=== PATIENT | female | born 1955 | race American Indian/Alaskan Native ===

== ENCOUNTER 2018-05-07 10:53 | Outpatient (CLI) | payer BC | END 2018-05-07 10:54 | disposition home or self-care (01) | LOC: RAD 10:53 ==

== ENCOUNTER 2018-05-09 08:37 | Outpatient (CLI) | payer BC | END 2018-05-09 08:38 | disposition home or self-care (01) | LOC: RAD 08:37 ==

== ENCOUNTER 2018-05-09 17:22 | Emergency (ER) | payer BC ==
[2018-05-09 17:35] VITALS: RESP 18; TEMP 98.1; BMI 30.1
--- NOTE | 2018-05-09 17:44 | ED PDOC ---
Arrival/HPI - General Chief Complaint: Chest Pain Time Seen by Provider: 05/09/18 17:28 Historian: Patient - History of Present Illness Narrative History of Present Illness (Text): 05/09/18 17:42 A 62 year old female, whose past medical history includes diabetes mellitus, hernia, hypertension, and sciatica presents, presents to the emergency department complaining of non-radiating chest pain that started around 1 hour ago. Patient notes she had a mammogram earlier today and states her primary care doctor noticed slight thickening at the bottom of her heart. Patient denies any shortness of breath, nausea, or any other complaints. PMD: Iris Duran Time/Duration: Other (earlier) Symptom Onset: Gradual Symptom Course: Unchanged Activities at Onset: Light Context: Other (doctor's office) Past Medical History - Provider Review Nursing Documentation Reviewed: Yes - Infectious Disease Hx of Infectious Diseases: None - Cardiac Hx Cardiac Disorders: Yes Hx Hypertension: Yes - Pulmonary Hx Asthma: Yes - Neurological Hx Neurological Disorder: No - HEENT Hx HEENT Disorder: No - Renal Hx Renal Disorder: No - Endocrine/Metabolic Hx Endocrine Disorders: Yes (boarder line diabetis) Hx Diabetes Mellitus Type 2: Yes - Hematological/Oncological Hx Blood Transfusions: No (PT. IS A JEHOVAH WITNESS) Hx Blood Transfusion Reaction: No - Integumentary Hx Dermatological Disorder: No - Musculoskeletal/Rheumatological Hx Musculoskeletal Disorders: Yes Hx Falls: Yes (dizzines) - Gastrointestinal Hx Gastrointestinal Disorders: No - Genitourinary/Gynecological Hx Genitourinary Disorders: No - Psychiatric Hx Psychophysiologic Disorder: No Hx Substance Use: No - Surgical History Hx Section: Yes (1985) - Anesthesia Hx Anesthesia: Yes Hx Anesthesia Reactions: No Hx Malignant Hyperthermia: No - Suicidal Assessment Feels Threatened In Home Enviroment: No Family/Social History - Physician Review Nursing Documentation Reviewed: Yes Family/Social History: No Known Family HX Smoking Status: Never Smoked Hx Alcohol Use: No Hx Substance Use: No Hx Substance Use Treatment: No Allergies/Home Meds Allergies/Adverse Reactions: Allergies No Known Allergies Allergy (Verified 04/25/14 11:08) Home Medications: Home Meds Medication Instructions Recorded Confirmed Metformin Hydrochloride [Metformin] 1,000 mg PO BID 09/03/11 03/10/15 Albuterol 0.083% [Albuterol 3 ml IH QID PRN 03/10/15 03/10/15 Sulfate 3 Ml] Review of Systems - Physician Review All systems were reviewed & negative as marked: Yes - Review of Systems Respiratory: absent: SOB Cardiovascular: Chest Pain Gastrointestinal: absent: Nausea Physical Exam - Physical Exam Narrative Physical Exam (Text): 05/09/18 17:44 Gen: VS reviewed, alert, well developed, well nourished, nontoxic, mild distress. ENT: normal pharynx. Eye: EOMI, PERRL. Neck: no JVD, supple, no adenopathy. CV: regular rate, regular rhythm, no rubs, no murmur, no gallops, S1, S2, pulses equal and strong. Pulm: no distress, clear to auscultation, no wheeze, no rhonchi, breath sounds equal, no rales. Abd: soft, nontender, no guarding, no rebound, no rigidity, normal bowel sounds. Ext: no edema. Skin: good color, no rash, no cyanosis. Psych: responds appropriately to questions, normal affect. Neuro: oriented x 3, CN2-12 intact grossly, motor intact, sensation intact. Vital Signs Reviewed: Yes Vital Signs Temp Pulse Resp BP Pulse Ox 05/09/18 17:30 98.1 F 100 H 18 173/112 H 99 Temperature: Afebrile Blood Pressure: Hypertensive Pulse: Tachycardic Respiratory Rate: Normal Appearance: Positive for: Well-Appearing, Non-Toxic Mental Status: Positive for: Alert and Oriented X 3 Medical Decision Making ED Course and Treatment: 05/09/18 17:44 Impression: 62 year old female presenting to the emergency room complaining of chest pain. Plan: -- EKG -- Labs -- CBC -- COAGs -- Chest X-ray -- Reassess and disposition Prior Visits: Notes and results from previous visits were reviewed. Progress Notes: 05/09/18 19:05 low risk chest pain, heart score = 3, no significant clinical suspicion for PE or aortic dissection. patient is chest pain free at this time, will get serial troponin and if negative patient can be discharged home - RAD Interpretation Narrative RAD Interpretations (Text): 05/09/18 19:21 Procedure: Chest X-ray Dictator: Henry Shah MD Impression: No active disease. No significant interval change compared to the prior examination(s). Radiology Orders: 05/09/18 17:41 CHEST PORTABLE [RAD] [employer] Consultant: Radiologist - EKG Interpretation EKG Interpretation (Text): 05/09/18 18:44 17:33: nsr at 100 bpm, nml qrs, nml axis, no acute sttw abn Interpreted by ED Physician: Yes - Scribe Statement The provider has reviewed the documentation as recorded by the Treasureibe Valeria Gutierrez All medical record entries made by the Scribe were at my direction and personally dictated by me. I have reviewed the chart and agree that the record accurately reflects my personal performance of the history, physical exam, medical decision making, and the department course for this patient. I have also personally directed, reviewed, and agree with the discharge instructions and disposition. Disposition/Present on Arrival - Present on Arrival Any Indicators Present on Arrival: No History of DVT/PE: No History of Uncontrolled Diabetes: No Urinary Catheter: No History of Decub. Ulcer: No History Surgical Site Infection Following: None - Disposition Have Diagnosis and Disposition been Completed?: Yes Diagnosis: Chest wall pain, Hypertension Disposition: HOME/ ROUTINE Disposition Time: 21:05 Patient Plan: Discharge Patient Problems: Current Active Problems Problem Status Onset Chest wall pain Acute Diabetes mellitus Acute Hypertension Acute Condition: STABLE Discharge Instructions (ExitCare): Chest Pain (ED) Additional Instructions: return for any new or worsening symptoms. follow up with your primary care doctor as soon as possible. discuss with your doctor further means to control your blood pressure. Referrals: Iris Domingo MD [Primary Care Provider] - Follow up with primary Forms: [employer] (Swedish)
[2018-05-09 18:31] LABS: BASO # 0.01 K/mm3 (0.0-2.0); BASO % 0.2 % (0.0-3.0); EOS # 0.1 (0.0-0.7); EOS % 1.8 % (1.5-5.0); HEMOGLOBIN 12.5 g/dL (12.0-16.0); LYMPH # 2.3 (1.2-3.4); LYMPH % 45.9 % (22.0-35.0); MEAN CELL VOLUME 86.3 fl (80.0-105.0); MEAN CORPUSCULAR HEMOGLOBIN 29.5 pg (25.0-35.0); MEAN CORPUSCULAR HGB CONC 34.2 g/dl (31.0-37.0); MEAN PLATELET VOLUME 10.6 fl (7.0-11.0); MONO # 0.3 (0.1-0.6); MONO % 6.7 % (1.0-6.0); RBC 4.24 10^6/uL (3.5-6.1); RED CELL DISTRIBUTION WIDTH 12.5 % (11.5-14.5); WHITE BLOOD COUNT 5.1 10^3/uL (4.5-11.0)
[2018-05-09 18:35] LABS: INR 1.08; PARTIAL THROMBOPLASTIN TIME 30.7 Seconds (26.9-38.3)
[2018-05-09 18:37] LABS: ALBUMIN 4.2 g/dL (3.0-4.8); ALT/SGPT 10 U/L (7-56); AST/SGOT 20 U/L (14-36); BLOOD UREA NITROGEN 18 mg/dL (7-21); CALCIUM 9.7 mg/dL (8.4-10.5); GFR NON-AFRICAN AMERICAN > 60; HDL CHOLESTEROL 40 mg/dL (29-60)
[2018-05-09 18:47] VITALS: PULSE 92
[2018-05-09 18:48] LABS: LDL CHOLESTEROL 71 mg/dL (0-129); TROPONIN I < 0.01 ng/mL
--- NOTE | 2018-05-09 18:54 | RAD ---
Date of service: 05/09/2018 HISTORY: chest pain COMPARISON: 12/30/2011 FINDINGS: LUNGS: No active pulmonary disease. PLEURA: No significant pleural effusion identified, no pneumothorax apparent. CARDIOVASCULAR: No atherosclerotic calcification present Cardiac No radiographic findings to suggest acute or significant cardiovascular disease. OSSEOUS STRUCTURES: No significant abnormalities. VISUALIZED UPPER ABDOMEN: Normal. OTHER FINDINGS: None. IMPRESSION: No active disease. No significant interval change compared to the prior examination(s).
[2018-05-09 20:52] VITALS: BP 153/89; O2SAT 98
--- NOTE | 2018-05-10 07:46 | CARD ---
APPROVED REPORT Date of service: 05/09/2018 EKG Measurement Heart [id number] <Conclusion> Normal sinus rhythm Possible Left atrial enlargement Borderline ECG
== END 2018-05-09 21:29 | disposition home or self-care (01) ==
LOC: ED 17:22
DX: R07.89 Other chest pain (principal); I10 Essential (primary) hypertension; E11.9 Type 2 diabetes mellitus without complications

== ENCOUNTER 2018-06-04 06:47 | Emergency (ER) | payer BC ==
[2018-06-04 06:48] VITALS: BMI 30.1
[2018-06-04 07:00] VITALS: TEMP 98
[2018-06-04] MEDS ORDERED: Sodium Chloride 0.9% 1,000 ML IV STA (07:32)
--- NOTE | 2018-06-04 07:46 | ED PDOC ---
Arrival/HPI - General Chief Complaint: Back Pain Historian: Patient - History of Present Illness Narrative History of Present Illness (Text): 06/04/18 07:47 Riya Holt is a 62 year old female, with a past medical history of diabetes and hypertension, who presents to the emergency department complaining of left flank pain for a week. Patient states pain radiates to the front left upper quadrant. Patient notes left flank pain began intermittently but is now constant. Patient informs of suprapubic pressure 2 weeks ago rated as 6/10 for which she took Azo. Suprapubic pain is currently resolved in the Emergency department. Patient also notes subjective fever yesterday and nausea. Patient notes increased urinary frequency secondary to diabetes. Patient denies hematuria, dysuria, bowel or urinary changes, chills, or any other complaints. Time/Duration: > week Symptom Course: Worsening Quality: Pressure Activities at Onset: Light Context: Home Past Medical History - Provider Review Nursing Documentation Reviewed: Yes - Infectious Disease Hx of Infectious Diseases: None - Cardiac Hx Cardiac Disorders: Yes Hx Hypertension: Yes - Pulmonary Hx Asthma: Yes - Neurological Hx Neurological Disorder: No - HEENT Hx HEENT Disorder: No - Renal Hx Renal Disorder: No - Endocrine/Metabolic Hx Endocrine Disorders: Yes Hx Diabetes Mellitus Type 2: Yes - Hematological/Oncological Hx Blood Transfusions: No (PT. IS A JEHOVAH WITNESS) Hx Blood Transfusion Reaction: No - Integumentary Hx Dermatological Disorder: No - Musculoskeletal/Rheumatological Hx Musculoskeletal Disorders: Yes Hx Falls: Yes (dizzines) - Gastrointestinal Hx Gastrointestinal Disorders: No - Genitourinary/Gynecological Hx Genitourinary Disorders: No - Psychiatric Hx Psychophysiologic Disorder: No Hx Substance Use: No - Surgical History Hx Section: Yes (1985) - Anesthesia Hx Anesthesia: Yes Hx Anesthesia Reactions: No Hx Malignant Hyperthermia: No - Suicidal Assessment Feels Threatened In Home Enviroment: No Family/Social History - Physician Review Nursing Documentation Reviewed: Yes Family/Social History: No Known Family HX Smoking Status: Never Smoked Hx Alcohol Use: No Hx Substance Use: No Hx Substance Use Treatment: No Allergies/Home Meds Allergies/Adverse Reactions: Allergies No Known Allergies Allergy (Verified 06/04/18 06:58) Home Medications: Home Meds Medication Instructions Recorded Confirmed Metformin Hydrochloride [Metformin] 1,000 mg PO BID 09/03/11 03/10/15 Albuterol 0.083% [Albuterol 3 ml IH QID PRN 03/10/15 03/10/15 Sulfate 3 Ml] Review of Systems - Physician Review All systems were reviewed & negative as marked: Yes - Review of Systems Constitutional: Fevers (subjective fever). absent: Night Sweats Gastrointestinal: Abdominal Pain (suprapubic pressure, 6/10, resolved). absent: Other (bowel changes) Genitourinary Female: Other (left flank pain). absent: Hematuria, Urine Output Changes (increased urinary output secondary to diabetes) Physical Exam Vital Signs Reviewed: Yes Vital Signs Temp Pulse Resp BP Pulse Ox 06/04/18 07:00 98 F 98 H 19 153/96 H 97 Temperature: Afebrile Blood Pressure: Hypertensive Pulse: Tachycardic Respiratory Rate: Normal Appearance: Positive for: Well-Appearing, Non-Toxic, Comfortable Pain Distress: None Mental Status: Positive for: Alert and Oriented X 3 - Systems Exam Head: Present: Atraumatic, Normocephalic Pupils: Present: PERRL Extroacular Muscles: Present: EOMI Conjunctiva: Present: Normal Mouth: Present: Moist Mucous Membranes Neck: Present: Normal Range of Motion Respiratory/Chest: Present: Clear to Auscultation, Good Air Exchange. No: Respiratory Distress, Accessory Muscle Use, Wheezes, Rales, Rhonchi Cardiovascular: Present: Regular Rate and Rhythm, Normal S1, S2. No: Murmurs, Rub, Gallop Abdomen: No: Tenderness, Distention, Peritoneal Signs Back: Present: Normal Inspection, Other (Left flank tenderness to palpation). No: CVA Tenderness Upper Extremity: Present: Normal Inspection. No: Edema Lower Extremity: Present: Normal Inspection. No: Edema Skin: Present: Warm, Dry, Normal Color. No: Rashes Psychiatric: Present: Alert, Oriented x 3, Normal Insight, Normal Concentration Medical Decision Making ED Course and Treatment: 06/04/18 08:10 Impression: Patient is a 62 year old female who presents to the emergency department complaining of left flank pain radiating to the LUQ since a week. Differential Diagnosis included but are not limited to: Plan: -- CT a/p without PO or IV contrast -- Labs -- Urine Culture -- Urinalysis -- Toradol -- IV Fluids -- Reassess and disposition Prior Visits: Notes and results from previous visits were reviewed. Progress Notes: 06/04/18 09:55 Patient states she is diabetic and took her metformin in the emergency department. - RAD Interpretation Narrative RAD Interpretations (Text): 06/04/18 09:[address] a/p without IV or PO contrast, shows: FINDINGS: LOWER THORAX: Questionable tiny pericardial effusion versus minimal pericardial thickening. Mild bibasilar atelectasis and or scarring changes. LIVER: Liver is enlarged measuring over 20 cm in CC dimension. No obvious hepatic mass collection or calcification seen on this noncontrast study. GALLBLADDER AND BILE DUCTS: Gallbladder is physiologically distended. No obvious intraluminal gallbladder calculi PANCREAS: Pancreas appears slightly atrophic and fatty replaced. No obvious pancreatic mass collection or calcification. No significant pancreatic ductal dilatation SPLEEN: Spleen is measures approximately 12.5 cm in AP dimension. No splenic mass collection or calcification. ADRENALS: No adrenal lesions. KIDNEYS AND URETERS: Kidneys demonstrate relatively symmetric size. No evidence of nephrolithiasis hydronephrosis. No obvious renal masses or collections. BLADDER: Urinary bladder is physiologically distended. No evidence of intraluminal urinary bladder calculi REPRODUCTIVE: Calcified uterine fibroids again noted. APPENDIX: Appendix is unremarkable. BOWEL: Evaluation of bowel is slightly limited due to the lack of oral contrast material. Stomach is incompletely distended. Visualized loops of small bowel exhibit normal contour and caliber. No evidence of mechanical small bowel obstruction. There are scattered colonic diverticula bulk of which are seen along the descending colon. No radiographic evidence of acute diverticulitis. PERITONEUM: Unremarkable. No fluid collection. No free air. Small to medium-sized umbilical hernia which contains both mesenteric fat and a knuckle of nonobstructed small bowel. This hernia has increased in size from prior exam LYMPH NODES: Unremarkable. No enlarged lymph nodes. VASCULATURE: Unremarkable. No aortic aneurysm. Mild aortic atherosclerotic calcification or mural plaque present. BONES: Mild multilevel degenerative spondylosis of the thoracic and lumbar spine. OTHER FINDINGS: None. IMPRESSION: There appears to be a small pericardial effusion or minimal pericardial thickening. Hepatomegaly. Diverticulosis without radiographic evidence of acute diverticulitis. Small to medium sized umbilical hernia which contains a small amount of mesenteric fat and a knuckle of unobstructed small bowel. Note that this hernia appears to have increased in size from prior exam. Calcified uterine fibroids. Radiology Orders: 06/04/18 07:32 ABD & PELVIS W/O PO OR IV CONT [CT] Stat Text[employer] Broker: Radiologist - Medication Orders Current Medication Orders: Sodium Chloride (Sodium Chloride 0.9%) 1,000 mls @ 100 mls/hr IV .Q10H STA Stop: 06/04/18 17:31 Discontinued Medications Ketorolac Tromethamine (Toradol) 15 mg IM STAT STA Stop: 06/04/18 07:33 - Scribe Statement The provider has reviewed the documentation as recorded by the Scribe Harley Cortes All medical record entries made by the Scribe were at my direction and personally dictated by me. I have reviewed the chart and agree that the record accurately reflects my personal performance of the history, physical exam, medical decision making, and the department course for this patient. I have also personally directed, reviewed, and agree with the discharge instructions and disposition. Disposition/Present on Arrival - Present on Arrival Any Indicators Present on Arrival: No History of DVT/PE: No History of Uncontrolled Diabetes: No Urinary Catheter: No History of Decub. Ulcer: No History Surgical Site Infection Following: None - Disposition Have Diagnosis and Disposition been Completed?: Yes Diagnosis: UTI (lower urinary tract infection) Disposition: HOME/ ROUTINE Disposition Time: 09:40 Condition: GOOD Discharge Instructions (ExitCare): Urinary Tract Infection, Adult (DC) Additional Instructions: RIYA HOLT, thank you for letting us take care of you today. Your provider was Harley Lozada DO and you were treated for LFT FLANK PAIN. The emergency medical care you received today was directed at your acute symptoms. If you were prescribed any medication, please fill it and take as directed. It may take se veral days for your symptoms to resolve. Return to the Emergency Department if your symptoms worsen, do not improve, or if you have any other problems. Please contact your doctor or call one of the physicians/clinics you have been referred to that are listed on the Patient Visit Information form that is included in your discharge packet. Bring any paperwork you were given at discharge with you along with any medications you are taking to your follow up visit. Our treatment cannot replace ongoing medical care by a primary care provider outside of the emergency department. Thank you for allowing the [facility] team to be part of your care today. You had a urine culture: It will take several days for the results, if any change in treatment is needed we will contact you. Follow up with your primary care doctor in 3-5 days for re-evaluation and further management. Prescriptions: Nitrofurantoin Macrocrystals [Macrobid] 100 mg PO BID #14 cap Referrals: Iris Domingo MD [Family Provider] - Follow up with primary Forms: [employer] (Hebrew)
[2018-06-04 09:11] LABS: BASO # 0.01 K/mm3 (0.0-2.0); BASO % 0.2 % (0.0-3.0); EOS # 0.1 (0.0-0.7); EOS % 2.2 % (1.5-5.0); HEMOGLOBIN 11.9 g/dL (12.0-16.0); LYMPH # 1.8 (1.2-3.4); LYMPH % 35.7 % (22.0-35.0); MEAN CELL VOLUME 87.5 fl (80.0-105.0); MEAN CORPUSCULAR HEMOGLOBIN 29.1 pg (25.0-35.0); MEAN CORPUSCULAR HGB CONC 33.2 g/dl (31.0-37.0); MEAN PLATELET VOLUME 11.5 fl (7.0-11.0); MONO # 0.3 (0.1-0.6); MONO % 6.7 % (1.0-6.0); RBC 4.09 10^6/uL (3.5-6.1); RED CELL DISTRIBUTION WIDTH 12.6 % (11.5-14.5); URINE BILIRUBIN NEGATIVE (NEGATIVE); URINE BLOOD SMALL (NEGATIVE); URINE GLUCOSE (UA) >=1000 mg/dL (NEGATIVE); URINE LEUKOCYTE ESTERASE TRACE Leu/uL (NEGATIVE); URINE PROTEIN NEGATIVE mg/dL (<30 mg/dL); URINE UROBILINOGEN 0.2 E.U./dL (<1 E.U./dL); WHITE BLOOD COUNT 4.9 10^3/uL (4.5-11.0)
[2018-06-04 09:27] LABS: URINE APPEARANCE CLEAR (CLEAR); URINE COLOR YELLOW (YELLOW)
[2018-06-04 09:30] LABS: URINE AMORPHOUS SEDIMENT FEW /hpf; URINE BACTERIA MANY /hpf
--- NOTE | 2018-06-04 09:30 | CT ---
Date of service: 06/04/2018 PROCEDURE: CT abdomen and pelvis HISTORY: Left flank pain COMPARISON: Comparison made with prior CT CT scan dissection protocol of the chest abdomen pelvis 03/10/2015. TECHNIQUE: Contiguous axial images of the abdomen and pelvis without oral or intravenous contrast material. Additional 2D sagittal and coronal reformats generated. Radiation dose: Total exam DLP = 607.76 mGy-cm. This CT exam was performed using one or more of the following dose reduction techniques: Automated exposure control, adjustment of the mA and/or kV according to patient size, and/or use of iterative reconstruction technique. FINDINGS: LOWER THORAX: Questionable tiny pericardial effusion versus minimal pericardial thickening. Mild bibasilar atelectasis and or scarring changes. LIVER: Liver is enlarged measuring over 20 cm in CC dimension. No obvious hepatic mass collection or calcification seen on this noncontrast study. GALLBLADDER AND BILE DUCTS: Gallbladder is physiologically distended. No obvious intraluminal gallbladder calculi PANCREAS: Pancreas appears slightly atrophic and fatty replaced. No obvious pancreatic mass collection or calcification. No significant pancreatic ductal dilatation SPLEEN: Spleen is measures approximately 12.5 cm in AP dimension. No splenic mass collection or calcification. ADRENALS: No adrenal lesions. KIDNEYS AND URETERS: Kidneys demonstrate relatively symmetric size. No evidence of nephrolithiasis hydronephrosis. No obvious renal masses or collections. BLADDER: Urinary bladder is physiologically distended. No evidence of intraluminal urinary bladder calculi REPRODUCTIVE: Calcified uterine fibroids again noted. APPENDIX: Appendix is unremarkable. BOWEL: Evaluation of bowel is slightly limited due to the lack of oral contrast material. Stomach is incompletely distended. Visualized loops of small bowel exhibit normal contour and caliber. No evidence of mechanical small bowel obstruction. There are scattered colonic diverticula bulk of which are seen along the descending colon. No radiographic evidence of acute diverticulitis. PERITONEUM: Unremarkable. No fluid collection. No free air. Small to medium-sized umbilical hernia which contains both mesenteric fat and a knuckle of nonobstructed small bowel. This hernia has increased in size from prior exam LYMPH NODES: Unremarkable. No enlarged lymph nodes. VASCULATURE: Unremarkable. No aortic aneurysm. Mild aortic atherosclerotic calcification or mural plaque present. BONES: Mild multilevel degenerative spondylosis of the thoracic and lumbar spine. OTHER FINDINGS: None. IMPRESSION: There appears to be a small pericardial effusion or minimal pericardial thickening. Hepatomegaly. Diverticulosis without radiographic evidence of acute diverticulitis. Small to medium sized umbilical hernia which contains a small amount of mesenteric fat and a knuckle of unobstructed small bowel. Note that this hernia appears to have increased in size from prior exam. Calcified uterine fibroids.
[2018-06-04 09:40] LABS: ALBUMIN 4.1 g/dL (3.0-4.8); ALT/SGPT 13 U/L (7-56); AST/SGOT 19 U/L (14-36); BLOOD UREA NITROGEN 19 mg/dL (7-21); CALCIUM 9.3 mg/dL (8.4-10.5); GFR NON-AFRICAN AMERICAN > 60
[2018-06-04 10:06] VITALS: BP 131/80; PULSE 90; RESP 18; O2SAT 99
== END 2018-06-04 10:30 | disposition home or self-care (01) ==
LOC: ED 06:47
DX: N39.0 Urinary tract infection, site not specified (principal); E11.9 Type 2 diabetes mellitus without complications; I10 Essential (primary) hypertension
CPT/HCPCS: 74176; 80053; 81001; 83735; 85025; 87086; 96360; 96361; 96372; 99283; J1885; J7030